=== PATIENT | female | born 1960 | race Caucasian/White ===

== ENCOUNTER 2024-11-28 16:13 | Emergency (ER) | payer BC ==
--- OUTSIDE RECORDS SUMMARY | 2024-11-28 16:15 | XMS REPORT | Continuity of Care Document ---
Author Name Unknown Address [address] [place] [address] [address] [place] [address] [facility] Address [address] [address] [address] [place] [address] Care Team Providers Care Manager Body Name Role Phone GC_SWHAWPRC_Fisher_H Attending Clinician Unavail able GC_GCBZW_Kadiyala_S Attending Clinician Unavaila ble GC_SWHAWPRC_Fisher_H Admitting Clinician Unavail able GC_GCBZW_Kadiyala_S Admitting Clinician Unavaila ble Payers Payer Name Policy Type Policy Number Effective Date Expirati on Date Source [place] [id number] 2010 00:00:00 Problems Condition Name Condition Details Condition Category Status Onset Date Resolution Date Last Treatment Date Treating Clinician Comments Source Gastroesop hageal reflux disease Gastroesop hageal Reflux Disease Problem Active 11-06 00:00: 00 [facility] Postmenopa usal bleeding Postmenopa usal Bleeding Problem Active 11-06 00:00: 00 [facility] Lateral cystocele Lateral Cystocele Problem Active 02-16 00:00: 00 [facility] Incomplete uterovagin al prolapse Incomplete Uterovagin al Prolapse Problem Active 02-16 00:00: 00 [facility] Atrophic vaginitis Atrophic Vaginitis Problem Active 02-02 00:00: 00 [facility] Screening mammograph y Screening Mammograph y Problem Active 02-02 00:00: 00 [facility] Pelvic and perineal pain Pelvic and Perineal Pain Problem Active 02-02 00:00: 00 [facility] Social History Smoking Status Start Date Stop Date Source Former Smoker [facility] Medications Ordered Medication Name Filled Medication Name Start Date Stop Date Current Medication? Ordering Clinician Indication Dosage Frequency Signature (SIG) Comments Components Source ketorolac 30 mg/mL injection solutionInj ect 1 mL every 6 hours by intravenous route. ketorolac 30 mg/mL injection solutionInj ect 1 mL every 6 hours by intravenous route. 11-09 09:01: 50 No 1mL Q6H ketorolac 30 mg/mL injection solutionIn ject 1 mL every 6 hours by intravenou s route. [facility] omeprazole magnesium 20 mg tablet,juan pablo yed release 20 mg every day by oral route. omeprazole magnesium 20 mg tablet,juan pablo yed release 20 mg every day by oral route. 05-30 00:00: 00 No 20mg Q1D omeprazole magnesium 20 mg tablet,del ayed release 20 mg every day by oral route. [facility] progesteron e micronized 200 mg capsule TAKE 1 CAPSULE BY MOUTH EVERYDAY AT BEDTIME progesteron e micronized 200 mg capsule TAKE 1 CAPSULE BY MOUTH EVERYDAY AT BEDTIME No progestero ne micronized 200 mg capsule TAKE 1 CAPSULE BY MOUTH EVERYDAY AT BEDTIME [facility] acetaminoph en 300 mg-codeine 30 mg tablet PLEASE SEE ATTACHED FOR DETAILED DIRECTIONS acetaminoph en 300 mg-codeine 30 mg tablet PLEASE SEE ATTACHED FOR DETAILED DIRECTIONS No acetaminop hen 300 mg-codeine 30 mg tablet PLEASE SEE ATTACHED FOR DETAILED DIRECTIONS [facility] diazepam 10 mg tablet TAKE 1 TABLET NEEDED BY ORAL ROUTE DIRECTED FOR 2 DAYS. diazepam 10 mg tablet TAKE 1 TABLET NEEDED BY ORAL ROUTE DIRECTED FOR 2 DAYS. No diazepam 10 mg tablet TAKE 1 TABLET NEEDED BY ORAL ROUTE DIRECTED FOR 2 DAYS. [facility] Vital Signs Vital Name Observation Time Observation Value Comments [facility] BMI (Body Mass Index) 2024-11-09 00:00:00 28.7 kg/m2 [facility] BP Diastolic 2024-11-09 00:00:00 65 mm[Hg] [facility] Height 2024-11-09 00:00:00 66 [in_i] [facility] Body Weight 2024-11-09 00:00:00 178 [lb_av] [facility] BP Systolic 2024-11-09 00:00:00 137 mm[Hg] [facility] BMI (Body Mass Index) 2024-11-06 00:00:00 28.7 kg/m2 [facility] Body Weight 2024-11-06 00:00:00 178 [lb_av] [facility] Height 2024-11-06 00:00:00 66 [in_i] [facility] Procedures Procedure Date / Time Performed Performing Clinicia n Source Hysteroscopy with Biopsy 2024-11-09 00:00:00 [facility] Dilation and Curettage 2021-08-29 00:00:00 [facility] Encounters Start Date/Time End Date/Time Encounter Type Admission Type Attending Clinicians Care Facility Care Department Encounter ID Source 2024-11-09 00:00:00 2024-11-09 00:00:00 Latonya Webb MD: [address], [place] [address] , Ph. [facility] [place]* [id number] [facility] 2024-11-06 00:00:00 2024-11-06 00:00:00 ANJELICA King: [address], [place] [address] , Ph. [facility] [place]* [id number] [facility] 2023-06-23 00:00:00 2023-06-23 00:00:00 Outpatient [facility] _Fisher_H [facility] [id number] [facility] 2023-04-27 00:00:00 2023-04-27 00:00:00 Outpatient [facility] _Fisher_H [facility] [id number] [facility] 2023-04-22 00:00:00 2023-04-22 00:00:00 Outpatient [facility] _Fisher_H [facility] [id number] [facility] 2023-04-06 00:00:00 2023-04-06 00:00:00 Outpatient [facility] _Fisher_H [facility] [id number] [facility] 2023-04-06 00:00:00 2023-04-06 00:00:00 Outpatient [facility] _Fisher_H [facility] [id number] [facility] 2023-04-05 00:00:00 2023-04-05 00:00:00 Outpatient GC_GCBZW_Ka diyala_S [facility] PR[facility] [id number] [facility] 2023-03-21 00:00:00 2023-03-21 00:00:00 Outpatient GC_[facility] _Fisher_H [facility] [id number] [facility]
[2024-11-28 17:12] LABS: Absolute Eosinophils 0.2 K/uL (0-0.5); Absolute Lymphocytes (CBC) 1.3 K/uL (0.7-4.9); Absolute Monocytes 0.4 K/uL (0.1-1.3); Absolute Neutrophil 3.6 K/uL (1.8-8.0); Basophils % 0.4 % (0-1.3); Eosinophils % 4.3 % (0-4.4); Hemoglobin 7.4 g/dL (12.0-15.0); Lymphocytes % 23.2 % (15.3-44.8); MCH 29.2 pg (27.0-35.0); MCHC 33.4 g/dL (32.0-36.0); MCV 87.2 fL (80-100); MPV 7.8 fL (7.6-11.3); Monocytes % 7.3 % (3.3-12.3); Neutrophils % 64.8 % (41.7-73.7); Platelets 377 thou/uL (152-406); RBC Red Blood Cell Count 2.52 M/uL (3.86-4.86); Red Cell Distribution Width 13.9 % (12.1-15.2)
[2024-11-28 17:22] LABS: Anion Gap 7.9 mEq/L (5.0-15.0); Potassium 3.9 mEq/L (3.5-5.1)
--- NOTE | 2024-11-28 17:41 | EDPHYS ---
Physician Documentation [facility] Name: Glory Kirk Age: 64 yrs Sex: Female : 1960 Arrival Date: 11/28/2024 Time: 16:13 Bed 5 Private MD: ED Physician Asa Barker HPI: 11/28 16:33 This 64 yrs old Female presents to ER via Ambulatory with complaints of Abnormal Lab ms3 Results. 16:33 64-year-old female with no past medical history presents to the emergency department ms3 for hemoglobin of 6.8 that was drawn yesterday. Patient states she has had vaginal bleeding since November 04 and is currently under the care of of Dr. Webb.. Historical: - Allergies: 16:27 No Known Allergies; cm10 - PMHx: 16:27 None; cm10 - Immunization history:: Adult Immunizations unknown. - Infectious Disease History:: Denies. - Social history:: Smoking status: unknown. ROS: 16:33 Constitutional: Negative for fever, and chills. Cardiovascular: Negative for chest ms3 pain, and palpitations. 16:33 MS/Extremity: Negative for injury and deformity, Skin: Negative for injury, rash, and discoloration, 16:33 Respiratory: Positive for shortness of breath, 16:33 : Positive for vaginal bleeding, ms3 Exam: 16:33 Constitutional: This is a well developed, well nourished patient who is awake, alert, ms3 and in no acute distress. Cardiovascular: Regular rate and rhythm with a normal S1 and S2. No gallops, murmurs, or rubs. Normal PMI, no JVD. No pulse deficits. Respiratory: Lungs have equal breath sounds bilaterally, clear to auscultation and percussion. No rales, rhonchi or wheezes noted. No increased work of breathing, no retractions or nasal flaring. Abdomen/GI: Soft, non-tender, with normal bowel sounds. No distension or tympany. No guarding or rebound. No evidence of tenderness throughout. Skin: Warm, dry with normal turgor. Normal color with no rashes, no lesions, and no evidence of cellulitis. Vital Signs: 16:24 BP 147 / 67; Pulse 80; Resp 15; Temp 98.4(O); Pulse Ox 97% on R/A; Weight 74.84 kg; cm10 Height 5 ft. 6 in. ; Pain 0/10; 17:03 BP 125 / 51; Pulse 75; Resp 18 S; Pulse Ox 99% on R/A; kc6 16:24 Body Mass Index 26.63 (74.84 kg, 167.64 cm) cm10 16:24 Pain Scale: Adult cm10 MDM: 16:33 Medical Screening Exam initiated ms3 16:35 Differential Diagnosis Anemia vs Lab abnormality. ms3 18:01 Data reviewed: vital signs, nurses notes, lab test result(s), and as a result, I will ms3 discharge patient. Counseling: I had a detailed discussion with the patient and/or guardian regarding the historical points, exam findings, and any diagnostic results supporting the discharge/admit diagnosis, lab results, the need for outpatient follow up, to return to the emergency department if symptoms worsen or persist or if there are any questions or concerns that arise at home. Special discussion: I discussed with the patient/guardian in detail that at this point there is no indication for admission to the hospital. It is understood, however, that if the symptoms persist or worsen the patient needs to return immediately for re-evaluation. ED course: Discussed hemoglobin of 7.4 today with patient. Patient to follow-up with Dr. Webb in 2 to 3 days. Patient understands and agrees with plan. All questions were answered. Return precautions discussed include worsening symptoms, or any other concerns.. 11/28 16:33 Order name: CBC with Diff; Complete Time: 17:27 ms3 11/28 16:33 Order name: BMP; Complete Time: 17:27 ms3 Administered Medications: No medications were administered Disposition Summary: 11/28/24 17:41 Discharge Ordered Notes: Location: Home ms3 Condition: Stable ms3 Diagnosis - Anemia, unspecified ms3 - Abnormal uterine and vaginal bleeding, unspecified ms3 Followup: ms3 - With: Latonya Webb MD - When: 2 - 3 days - Reason: Recheck today's complaints Discharge Instructions: - Discharge Summary Sheet ms3 - Anemia ms3 - Dysfunctional Uterine Bleeding ms3 Forms: - Medication Reconciliation Form ms3 - Antibiotic Education ms3 - Prescription Opioid Use ms3 - Patient Portal Instructions ms3 - Leadership Thank You Letter ms3 Signatures: Dispatcher [employer] EDMS Barker, Asa, DO DO ms3 Aida Singleton, RN RN cm10
--- NOTE | 2024-11-28 17:41 | ER ---
Nurse's Notes [facility] Name: Glory Kirk Age: 64 yrs Sex: Female : 1960 Arrival Date: 11/28/2024 Time: 16:13 Bed 5 Private MD: Diagnosis: Anemia, unspecified;Abnormal uterine and vaginal bleeding, unspecified Presentation: 11/28 16:24 Chief complaint: Patient states: Had labs drawn yesterday and her HGB is 6.8. Pt states cm10 that she has been having vaginal bleeding since October. Pt seeing dr. webb for the bleeding. Coronavirus screen: Client denies travel out of the [place] in the last 14 days. Ebola Screen: Patient denies travel to an Ebola-affected area in the 21 days before illness onset. Initial Sepsis Screen: Does the patient meet any 2 criteria? No. Patient's initial sepsis screen is negative. Does the patient have a suspected source of infection? No. Patient's initial sepsis screen is negative. Risk Assessment: Do you want to hurt yourself or someone else? Patient reports no desire to harm self or others. Onset of symptoms was November 28, 2024. 16:24 Method Of Arrival: Ambulatory cm10 16:24 Acuity: CAROLINE 3 cm10 Triage Assessment: 16:27 General: Appears in no apparent distress. comfortable, Behavior is calm, cooperative. cm10 Pain: Denies pain. Neuro: No deficits noted. Level of Consciousness is awake, alert, obeys commands, Oriented to person, place, time, situation, Appropriate for age. Respiratory: No deficits noted. Airway is patent Respiratory effort is even, unlabored, Respiratory pattern is regular, symmetrical. : Reports vaginal bleeding that is. Historical: - Allergies: 16:27 No Known Allergies; cm10 - PMHx: 16:27 None; cm10 - Immunization history:: Adult Immunizations unknown. - Infectious Disease History:: Denies. - Social history:: Smoking status: unknown. Screenin:02 [facility] ED Fall Risk Assessment (Adult) History of falling in the last 3 months, kc6 including since admission No falls in past 3 months (0 pts) Confusion or Disorientation No (0 pts) Intoxicated or Sedated No (0 pts) Impaired Gait No (0 pts) Mobility Assist Device Used No (0 pt) Altered Elimination No (0 pt) Score/Fall Risk Level 0 - 2 = Low Risk Oriented to surroundings, Maintained a safe environment, Educated pt \T\ family on fall prevention, incl call for assistance when getting out of bed. Abuse screen: Denies threats or abuse. Denies injuries from another. Nutritional screening: No deficits noted. Tuberculosis screening: No symptoms or risk factors identified. Assessment: 17:03 General: Appears in no apparent distress. comfortable, well groomed, well developed, kc6 Behavior is calm, cooperative, appropriate for age. Pain: Denies pain. Neuro: Level of Consciousness is awake, alert, obeys commands, Oriented to person, place, time, situation, Appropriate for age. Cardiovascular: Capillary refill < 3 seconds. Respiratory: Airway is patent Trachea midline Respiratory effort is even, unlabored, Respiratory pattern is regular, symmetrical. GI: No signs and/or symptoms were reported involving the gastrointestinal system. : Reports vaginal bleeding that is bright red, with clots, moderate flow, spotty, since October. EENT: No signs and/or symptoms were reported regarding the EENT system. Derm: No signs and/or symptoms reported regarding the dermatologic system. Skin is intact, is healthy with good turgor, Skin is dry, Skin is pale, Skin temperature is warm. Musculoskeletal: No signs and/or symptoms reported regarding the musculoskeletal system. Circulation, motion, and sensation intact. Range of motion: intact in all extremities. Vital Signs: 16:24 BP 147 / 67; Pulse 80; Resp 15; Temp 98.4(O); Pulse Ox 97% on R/A; Weight 74.84 kg; cm10 Height 5 ft. 6 in. ; Pain 0/10; 17:03 BP 125 / 51; Pulse 75; Resp 18 S; Pulse Ox 99% on R/A; kc6 16:24 Body Mass Index 26.63 (74.84 kg, 167.64 cm) cm10 16:24 Pain Scale: Adult cm10 ED Course: 16:17 Patient arrived in ED. al6 16:17 Asa Barker DO is Attending Physician. ms3 16:27 Triage completed. cm10 16:27 Arm band placed on right wrist. Patient placed in an exam room, on a stretcher. cm10 16:39 Juju aBch, RN is Primary Nurse. kc6 17:02 Patient has correct armband on for positive identification. Bed in low position. Call kc6 light in reach. Side rails up X 1. Pulse ox on. NIBP on. Door closed. Noise minimized. Lights dimmed. Pillow given. Verbal reassurance given. 17:02 Missed attempt(s): 20 gauge in right antecubital area. Inserted saline lock: 20 gauge kc6 in left antecubital area, using aseptic technique. Blood collected. Flushed with 10 mL NS. Patient maintains SpO2 saturation greater than 95% on room air. 17:40 Latonya Webb MD is Referral Physician. ms3 17:50 No provider procedures requiring assistance completed. IV discontinued, intact, kc6 bleeding controlled, No redness/swelling at site. Pressure dressing applied. Administered Medications: No medications were administered Medication: 17:51 VIS not applicable for this client. kc6 Outcome: 17:41 Discharge ordered by MD. ms3 17:50 Discharged to home ambulatory, with significant other, kc6 17:50 Condition: good 17:50 Discharge instructions given to patient, significant other, Instructed on discharge instructions, follow up and referral plans. Demonstrated understanding of instructions, follow-up care, 17:51 Patient left the ED. kc6 Signatures: Asa Barker DO DO ms3 Juju Bach RN RN kc6 Aida Singleton RN RN cm10 Stephany Calderon6
[2024-11-28 23:21] VITALS: TEMP 98.4
[2024-11-28 23:22] VITALS: BP 125/51; O2SAT 99
== END 2024-11-28 17:51 | disposition home or self-care (01) ==
LOC: ER 16:13
DX: D64.9 Anemia, unspecified (principal); N93.9 Abnormal uterine and vaginal bleeding, unspecified
CPT/HCPCS: 36415; 80048; 85025